=== PATIENT | male | born 2000 | race African-American/Black ===

== ENCOUNTER 2021-10-08 10:11 | Emergency (ER) | payer OTHER ==
[~2021-10-08] VITALS: Ht 182.9 cm; Wt 115.5 kg
[2021-10-08] MEDS ORDERED: ORPHENADRINE CITRATE 60 MG/2 ML VIAL. IM ONE (11:00)
[2021-10-08] MEDS ORDERED: KETOROLAC 60 MG/2 ML VIAL. IM ONE (11:00)
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
[2021-10-08 11:06] VITALS: BP 127/69
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
[2021-10-08] MEDS ORDERED: CYCL10TA19 PO (12:25)
[2021-10-08] MEDS ORDERED: DICL50TA4 PO (12:25)
== END 2021-10-08 12:30 | disposition home or self-care (01) ==
LOC: ER 10:11
DX: M54.6 Pain in thoracic spine (principal); G89.11 Acute pain due to trauma; V49.49XA Driver injured in collision with other motor vehicles in traffic accident, initial encounter; Y93.89 Activity, other specified; Y92.488 Other paved roadways as the place of occurrence of the external cause; Y99.8 Other external cause status
CPT/HCPCS: 72125; 72128; 96372; 99284; J1885; J2360